=== PATIENT | female | born 1960 | race Caucasian/White ===

== ENCOUNTER 2016-05-28 12:27 | Inpatient (IN) | payer BC ==
[~2016-05-28 12:27] MED LIST: ADVIL MIGRAINE200 MG; ALEVE220 M3 PO; AMLODIPINE-BEN1 EA11 PO; ATENOLOL100 MG; ATENOLOL50 MG; AUGMENTIN 875-11 TAB; BACTRIM DS TAB1 EAC2 PO; CEFDINIR300 M1 PO; ESGIC PLUS PO; LEXAPRO; MELATONIN1 M2 PO; PERCOCET 5/3251 TAB PO; TRIAMTERENE-HC1 EAC3 PO; ZITHROMAX250 M1 PO
[2016-05-28] MEDS ORDERED: TUMS200 MG PO (12:54)
[2016-05-28] MEDS ORDERED: ALPRAZOLAM0.25 M3 PO (14:08)
[2016-05-28 15:56] LABS: URINE APPEARANCE HAZY; URINE BILIRUBIN NEGATIVE (NEG); URINE BLOOD LARGE (NEG); URINE COLOR YELLOW; URINE GLUCOSE (UA) MODERATE (NEG); URINE KETONE NEGATIVE (NEG); URINE LEUKOCYTE ESTERASE POSITIVE (NEG); URINE NITRITE NEGATIVE (NEG); URINE PROTEIN NEGATIVE (NEG)
[2016-05-28 16:11] LABS: BASO % 0.6 % (0-2); BASO ABSOLUTE COUNT 0.1 tho/cmm (0.0-0.2); EOS % 0.6 % (0-7); EOSINOPHIL ABSOLUTE COUNT 0.1 tho/cmm (0.0-0.7); HCT-HEMATOCRIT 43.2 % (34.0-49.0); HGB-HEMOGLOBIN 14.9 gm/dl (12.0-15.5); IMMATURE GRANULOCYTES ABSOLUTE 0.08 tho/cmm (0-0.03); IMMATURE GRANULOCYTES PERCENT 0.8 % (0-0.3); LYMPH % 26.1 % (20-45); LYMPH ABSOLUTE COUNT 2.7 tho/cmm (0.8-4.5); MCH (MEAN CORPUSCULAR HGB) 29.6 pg (28.0-32.0); MCHC MEAN CORPUSCULAR HGB CONC 34.5 % (32.0-36.0); MCV (MEAN CELL VOLUME) 85.7 fl (82.0-96.0); MEAN PLATELET VOLUME 9.6 cmc (9.4-12.4); MONOCYTE ABSOLUTE COUNT 0.7 tho/cmm (0.0-1.2); NEUTROPHIL ABSOLUTE COUNT 6.8 tho/cmm (1.6-8.0); NEUTROPHIL-AUTOMATED 6.8 tho/cmm (1.6-8.0); NEUTROPHILS % 64.9 % (40-80); PLATELET COUNT 383 tho/cmm (150-450); RED BLOOD COUNT 5.04 mil/cmm (4.00-5.20); RED CELL DISTRIBUTION WIDTH 12.1 % (12.4-16.4); WHITE BLOOD COUNT 10.5 tho/cmm (4.0-10.0)
[2016-05-28 16:16] LABS: INR 0.9 INR (0.9-1.1); PROTHROMBIN TIME 10.7 SECONDS (9.0-13.6)
[2016-05-28 16:28] LABS: ALB/GLOB RATIO 1.3 (0.8-2.0); ALBUMIN 4.5 g/dl (3.5-5.0); ALKALINE PHOSPHATASE 107 U/L (33-138); ALT/SGPT 28 U/L (12-78); ANION GAP 13 mmol/L (0-20); AST/SGOT 20 U/L (10-40); BILIRUBIN,TOTAL 0.5 mg/dl (0-1.5); BLOOD UREA NITROGEN 38 mg/dl (6-24); CALCIUM 11.5 mg/dl (8.5-10.5); CARBON DIOXIDE-VENOUS 30 mmol/L (22-32); CHLORIDE 95 mmol/l (96-110); GLUCOSE 108 mg/dL (70-110); POTASSIUM 3.8 mmol/L (3.7-5.1); SODIUM 134 mmol/L (135-145); eGFR VALUE FOR BLACK 48 mL/Min
[2016-05-28 16:42] LABS: PROCALCITONIN <0.05 ng/ml (0.05-0.09)
[2016-05-28 16:49] LABS: MAGNESIUM 1.8 mg/dl (1.3-2.6)
[2016-05-29 05:16] LABS: BASO % 0.9 % (0-2); BASO ABSOLUTE COUNT 0.1 tho/cmm (0.0-0.2); EOS % 1.8 % (0-7); EOSINOPHIL ABSOLUTE COUNT 0.2 tho/cmm (0.0-0.7); HCT-HEMATOCRIT 38.7 % (34.0-49.0); HGB-HEMOGLOBIN 13.3 gm/dl (12.0-15.5); IMMATURE GRANULOCYTES ABSOLUTE 0.04 tho/cmm (0-0.03); IMMATURE GRANULOCYTES PERCENT 0.5 % (0-0.3); LYMPH ABSOLUTE COUNT 2.6 tho/cmm (0.8-4.5); MCH (MEAN CORPUSCULAR HGB) 29.6 pg (28.0-32.0); MCHC MEAN CORPUSCULAR HGB CONC 34.4 % (32.0-36.0); MCV (MEAN CELL VOLUME) 86.2 fl (82.0-96.0); MEAN PLATELET VOLUME 9.5 cmc (9.4-12.4); MONO % 7.5 % (0-12); MONOCYTE ABSOLUTE COUNT 0.6 tho/cmm (0.0-1.2); NEUTROPHIL ABSOLUTE COUNT 5.1 tho/cmm (1.6-8.0); NEUTROPHIL-AUTOMATED 5.1 tho/cmm (1.6-8.0); NEUTROPHILS % 59.3 % (40-80); PLATELET COUNT 338 tho/cmm (150-450); RED BLOOD COUNT 4.49 mil/cmm (4.00-5.20); RED CELL DISTRIBUTION WIDTH 12.1 % (12.4-16.4); WHITE BLOOD COUNT 8.6 tho/cmm (4.0-10.0)
[2016-05-29 05:30] LABS: ALBUMIN 3.6 g/dl (3.5-5.0); ALT/SGPT 22 U/L (12-78); ANION GAP 15 mmol/L (0-20); AST/SGOT 19 U/L (10-40); BLOOD UREA NITROGEN 26 mg/dl (6-24); CALCIUM 9.8 mg/dl (8.5-10.5); CARBON DIOXIDE-VENOUS 29 mmol/L (22-32); CHLORIDE 100 mmol/l (96-110); CREATININE 1.39 mg/dl (0.50-1.10); GLUCOSE 106 mg/dL (70-110); POTASSIUM 3.2 mmol/L (3.7-5.1); SODIUM 141 mmol/L (135-145); eGFR VALUE FOR BLACK 48 mL/Min
[2016-05-29 05:32] LABS: ALB/GLOB RATIO 1.2 (0.8-2.0); ALKALINE PHOSPHATASE 83 U/L (33-138); BILIRUBIN,TOTAL 0.5 mg/dl (0-1.5)
[2016-05-30 06:30] LABS: BASO % 0.8 % (0-2); BASO ABSOLUTE COUNT 0.1 tho/cmm (0.0-0.2); EOS % 2.8 % (0-7); EOSINOPHIL ABSOLUTE COUNT 0.2 tho/cmm (0.0-0.7); HGB-HEMOGLOBIN 12.9 gm/dl (12.0-15.5); IMMATURE GRANULOCYTES ABSOLUTE 0.06 tho/cmm (0-0.03); IMMATURE GRANULOCYTES PERCENT 0.7 % (0-0.3); LYMPH % 34.6 % (20-45); LYMPH ABSOLUTE COUNT 2.9 tho/cmm (0.8-4.5); MCH (MEAN CORPUSCULAR HGB) 29.3 pg (28.0-32.0); MCHC MEAN CORPUSCULAR HGB CONC 33.9 % (32.0-36.0); MCV (MEAN CELL VOLUME) 86.4 fl (82.0-96.0); MEAN PLATELET VOLUME 9.4 cmc (9.4-12.4); MONO % 8.9 % (0-12); MONOCYTE ABSOLUTE COUNT 0.8 tho/cmm (0.0-1.2); NEUTROPHIL ABSOLUTE COUNT 4.4 tho/cmm (1.6-8.0); NEUTROPHIL-AUTOMATED 4.4 tho/cmm (1.6-8.0); NEUTROPHILS % 52.2 % (40-80); PLATELET COUNT 348 tho/cmm (150-450); RED CELL DISTRIBUTION WIDTH 12.1 % (12.4-16.4); WHITE BLOOD COUNT 8.5 tho/cmm (4.0-10.0)
[2016-05-30 06:53] LABS: ANION GAP 10 mmol/L (0-20); BLOOD UREA NITROGEN 15 mg/dl (6-24); CALCIUM 9.2 mg/dl (8.5-10.5); CARBON DIOXIDE-VENOUS 28 mmol/L (22-32); CHLORIDE 103 mmol/l (96-110); CREATININE 1.24 mg/dl (0.50-1.10); GLUCOSE 91 mg/dL (70-110); POTASSIUM 3.2 mmol/L (3.7-5.1); SODIUM 138 mmol/L (135-145); eGFR VALUE FOR BLACK 55 mL/Min
[2016-05-30] MEDS ORDERED: LEVAQUIN500 M1 PO (11:54)
[2016-05-30] MEDS ORDERED: PAXIL10 M1 PO (11:55)
== END 2016-05-30 13:00 | DRG 872 ==
LOC: CAR1 12:27 → PCUB 17:45
PROVIDERS: Internal Medicine; Nurse Practitioner Acute Care; ADMIT Hospitalist
PROC: 3E0F7GC Introduction of Other Therapeutic Substance into Respiratory Tract, Via Natural or Artificial Opening (ICD-10-PCS; principal; 2016-05-28)
DX: A41.51 Sepsis due to Escherichia coli [E. coli] (principal); N17.9 Acute kidney failure, unspecified; N39.0 Urinary tract infection, site not specified; E83.52 Hypercalcemia; I12.9 Hypertensive chronic kidney disease with stage 1 through stage 4 chronic kidney disease, or unspecified chronic kidney disease; R31.9 Hematuria, unspecified; R63.0 Anorexia; Z68.32 Body mass index [BMI] 32.0-32.9, adult; B96.20 Unspecified Escherichia coli [E. coli] as the cause of diseases classified elsewhere
CPT/HCPCS: J0696; J1650; J2543; J3370; J7030; J7050